=== PATIENT | female | born 1980 | race Caucasian/White ===

== ENCOUNTER 2017-06-10 17:00 | Emergency (ER) | payer BC ==
[2017-06-10 17:17] VITALS: BP 142/102; PULSE 86; TEMP 98.2; BMI 30.6
[2017-06-10] MEDS ORDERED: KETOROLAC TROMETHAMINE 60 MG/2 ML VIAL IM ONE (17:44)
--- NOTE | 2017-06-10 17:44 | PDOC ---
History of Present Illness - General Chief Complaint: Sore Throat Stated Complaint: THROAT PAIN/SWELLING Time Seen by Provider: 06/10/17 17:22 - History of Present Illness Initial Comments: 06/10/17 17:43 CHIEF COMPLAINT: foreign body sensation to throat HISTORY OF PRESENT ILLNESS: 36 yo F with no significant PMH presents to [facility] with pain and discomfort to throat. Patient states that the first week of March she had a toothpick stuck in her throat which she removed herself, and when she went to the emergency room they did a CT scan of her neck and "they did see that I had removed something from my throat." She states that last night she felt discomfort in her throat but took ibuprofen and it resolved; however today she was trying to eat and the pain returned. She denies any sensation of throat swelling or difficulty breathing or speaking, but she did have "a lot of pain." She reports that she was told to see an ENT doctor if this happened but she came to the ER because she was concerned about the pain. No recent travel or sick contacts. PAST MEDICAL HISTORY: Denies past medical history FAMILY HISTORY: Denies SOCIAL HISTORY: Denies tobacco, alcohol, illicit drug use. SURGICAL HISTORY: Denies ALLERGIES: tramadol REVIEW OF SYSTEMS General/Constitutional: Denies fever or chills. Denies weakness, weight change. HEENT: Throat pain. Denies change in vision. Denies ear pain or discharge. Cardiovascular: Denies chest pain or shortness of breath. Respiratory: Denies cough, wheezing, or hemoptysis. Gastrointestinal: Denies nausea, vomiting, diarrhea or constipation. Denies rectal bleeding. Genitourinary: Denies dysuria, frequency, or change in urination. Musculoskeletal: Denies joint or muscle swelling or pain. Denies neck or back pain. Skin and breasts: Denies rash or easy bruising. PHYSICAL EXAM General Appearance: Well-appearing, appropriately dressed. No apparent distress. HEENT: Patient speaking in complete sentences. EOMI, PERRLA, normal ENT inspection, normal voice, TMs normal, pharynx normal. No conjunctival pallor. No photophobia, scleral icterus. Neck: Supple. Trachea midline. No tenderness, rigidity, carotid bruit, stridor , lymphadenopathy, or thyromegaly. Respiratory/Chest: Lungs CTAB. No respiratory distress. Cardiovascular: RRR. S1, S2. Musculoskeletal/Extremities: Normal inspection. FROM of all extremities, normal capillary refill. Pelvis Stable. No CVA tenderness. No tenderness to extremities, pedal edema, swelling, erythema or deformity. Integumentary: Appropriate color, dry, warm. No cyanosis, erythema, jaundice or rash Neurologic: counseling program leader II-XII intact. Fully oriented, alert. Appropriate mood/affect. Motor strength 5/5. No appreciable EOM palsy, facial droop or sensory deficit. 06/10/17 17:56 Past History - Past Medical History Allergies/Adverse Reactions: Allergies Allergy/AdvReac Type Severity Reaction Status Date / Time tramadol HCl [From Ultram] Allergy Hives Verified 06/10/17 17:17 Home Medications: Ambulatory Orders Ibuprofen 400 mg PO ASDIR 06/10/17 Other medical history: NONE - Psycho/Social/Smoking Cessation Hx Anxiety: No Suicidal Ideation: No Smoking History: Never smoked Hx Alcohol Use: Yes (SOCIAL) Drug/Substance Use Hx: No Substance Use Type: None *Physical Exam - Vital Signs Last Vital Signs Temp Pulse Resp BP Pulse Ox 98.2 F 86 20 142/102 99 06/10/17 17:12 06/10/17 17:12 06/10/17 17:12 06/10/17 17:12 06/10/17 17:12 Medical Decision Making - Medical Decision Making 06/10/17 18:01 36 yo F with no significant PMH presents to [facility] with pain and discomfort to throat. -Rapid strep -Toradol 60 mg; patient reporst she is currently on her period and that there is no possibility of . No foreign body visualized on exam. Discussed with patient option to do soft tissue CT neck. Patient reports that she already had a CT at [facility] in March, and would prefer to follow up with ENT on Monday. Discussed with patient signs and symptoms for return to ER; patient verbalized understanding and agrees to plan. *DC/Admit/Observation/Transfer Diagnosis at time of Disposition: Sensation of foreign body in esophagus - Discharge Dispostion Disposition: HOME Condition at time of disposition: Stable Admit: No - Referrals Referrals: Dereck Parks MD [Staff Physician] - - Patient Instructions Additional Instructions: Continue taking Motrin as needed for your discomfort. As discussed, please follow up with ENT on Monday for a possible endoscopy. If you experience any severe swelling of the throat, difficulty breathing, inability to swallow, or any new or worsening symptoms, please go to the facility where your original CT scan was performed in order to be able to see if there has been a change since your previous visit. - Post Discharge Activity
[2017-06-10] MEDS ORDERED: KETOROLAC TROMETHAMINE 60 MG/2 ML VIAL ONE (17:48)
== END 2017-06-10 18:15 | disposition home or self-care (01) ==
LOC: JERFT 17:00
DX: T18.108D Unspecified foreign body in esophagus causing other injury, subsequent encounter (principal); X58.XXXD Exposure to other specified factors, subsequent encounter
CPT/HCPCS: 87070; 87430; 99281-25

== ENCOUNTER 2018-10-16 09:43 | Emergency (ER) | payer BC ==
[2018-10-16 10:02] VITALS: BP 184/59; PULSE 46; TEMP 98.4; BMI 31.5
--- NOTE | 2018-10-16 11:49 | PDOC ---
History of Present Illness - General Chief Complaint: Injury Stated Complaint: PAIN Time Seen by Provider: 10/16/18 11:02 - History of Present Illness Initial Comments: 10/16/18 11:46 38-year-old female without comorbidities presents for evaluation after a fall. She had a mechanical fall at home 2 days ago injuring her right side. She complains of right-sided rib pain. Right forearm pain. She did not hit her head there was no loss of consciousness postinjury nausea vomiting or visual changes. Past History - Past Medical History Allergies/Adverse Reactions: Allergies Allergy/AdvReac Type Severity Reaction Status Date / Time tramadol HCl [From Ultra] Allergy Hives Verified 10/16/18 09:59 Home Medications: Ambulatory Orders Ibuprofen 400 mg PO ASDIR 06/10/17 COPD: No - Immunization History Immunization Up to Date: Yes - Suicide/Smoking/Psychosocial Hx Smoking History: Never smoked Hx Alcohol Use: No Drug/Substance Use Hx: No Substance Use Type: None Review of Systems - Review of Systems : Yes: See HPI Musculoskeletal: Yes: See HPI *Physical Exam - Vital Signs Last Vital Signs Temp Pulse Resp BP Pulse Ox 98.4 F 46 L 18 184/59 H 98 10/16/18 09:59 10/16/18 09:59 10/16/18 09:59 10/16/18 09:59 10/16/18 09:59 - Physical Exam Comments: 10/16/18 11:48 HEAD: NC/AT EYES: Conjuntiva clear Ears: Canals and TM's normal NOSE: No d/c THROAT: Moist mucous membrances, oral pharanx clear, uvula midline NECK: Supple without adenopathy CARDIAC: S1 S2 LUNGS: CTA Full and Equal breath sounds, mild right-sided rib pain in the areas of ribs 9 and 10 about the anterior aspect. ABDOMEN: Soft NT ND MS: Full ROM in all joints without edema; there is no tenderness about the elbow wrist or forearm there is full range of motion without discomfort. There is mild crepitation about the dorsum of the forearm with wrist motion. No tenderness NEUROLOGIC: No gross sensory or motor deficits, NVID SKIN: Normal color and temperature no lesions or rashes Moderate Sedation - Procedure Monitoring Vital Signs: Procedure Monitoring Vital Signs Temperature 98.4 F 10/16/18 09:59 Pulse Rate 46 L 10/16/18 09:59 Respiratory Rate 18 12/04/18 09:59 Blood Pressure 184/59 H 10/16/18 09:59 O2 Sat by Pulse Oximetry (%) 98 10/16/18 09:59 ED Treatment Course - RADIOLOGY Radiology Studies Ordered: Category Date Time Status CHEST PA & LAT [RAD] Stat Radiology 10/16/18 11:45 Ordered RIBS RIGHT SIDE [RAD] Stat Radiology 10/16/18 11:45 Ordered Medical Decision Making - Medical Decision Making 10/16/18 12:07 Chest x-ray is normal there is no fracture on rib series *DC/Admit/Observation/Transfer Diagnosis at time of Disposition: Contusion of rib on right side, Strain of forearm, right - Discharge Dispostion Disposition: HOME Condition at time of disposition: Stable Decision to Admit order: No - Referrals Referrals: Adela Barrett MD [Primary Care Provider] - Wilfrido Moulton MD [Staff Physician] - - Patient Instructions Printed Discharge Instructions: DI for Rib Contusion, Forearm Muscle Strain, DI for Forearm Muscle Strain Additional Instructions: He may take Tylenol and Motrin as directed for pain. Return to the emergency room should symptoms worsen or go unresolved. Please follow-up with orthopedic surgery in 2-3 days for further evaluation of your treatment options for you forearm strain and your primary care physician for your rib contusion. - Post Discharge Activity
== END 2018-10-16 12:25 | disposition home or self-care (01) ==
LOC: JERFT 09:43
DX: S20.211A Contusion of right front wall of thorax, initial encounter (principal); S56.911A Strain of unspecified muscles, fascia and tendons at forearm level, right arm, initial encounter; W18.39XA Other fall on same level, initial encounter; Y93.89 Activity, other specified; Y92.009 Unspecified place in unspecified non-institutional (private) residence as the place of occurrence of the external cause
CPT/HCPCS: 71046-TC-FY; 71101-TC-RT-FY; 99281-25

== ENCOUNTER 2019-01-18 14:44 | Emergency (ER) | payer BC ==
[2019-01-18 15:00] VITALS: BP 137/85; PULSE 62; TEMP 98.6; BMI 35.0
--- NOTE | 2019-01-18 15:02 | PDOC ---
Rapid Medical Evaluation Medical Evaluation: Allergies Allergy/AdvReac Type Severity Reaction Status Date / Time tramadol HCl [From Ultram] Allergy Hives Verified 10/16/18 09:59 01/18/19 14:57 I have performed a brief in-person evaluation of this patient. The patient presents with a chief complaint of: Pressure to chest with deep inspiration SOB yesterday intermittant. States started to exercise last week, and this week bicycles , and crunches - Pertinent physical exam findings:NAD, AOx3 - lungs CTA I have ordered the following: EKG The patient will proceed to the ED for further evaluation 01/18/19 14:58 Discharge Disposition - Diagnosis Chest pain of uncertain etiology - Referrals - Patient Instructions - Post Discharge Activity
[2019-01-18] MEDS ORDERED: KETOROLAC TROMETHAMINE 60 MG/2 ML VIAL IM ONE (16:51)
[2019-01-18 17:18] LABS: BASO % 1.1 % (0-2.0); EOS % 2.6 % (0-4.5); HEMATOCRIT 41.3 % (32.4-45.2); HEMOGLOBIN 14.8 GM/dL (10.7-15.3); LYMPH % 19.2 % (8-40); MCH 32.6 pg (25.7-33.7); MCHC 35.7 g/dl (32.0-36.0); MEAN CELL VOLUME 91.1 fl (80-96); MEAN PLT VOLUME 8.3 fl (7.5-11.1); NEUT % 67.1 % (42.8-82.8); PLATELET COUNT 284 K/MM3 (134-434); RBC 4.53 M/mm3 (3.60-5.2); RDW 15.8 % (11.6-15.6); WHITE BLOOD COUNT 7.8 K/mm3 (4.0-10.0)
[2019-01-18 17:36] LABS: ALBUMIN 4.5 g/dl (3.4-5.0); ALK PHOS 77 U/L (45-117); ANION GAP 10 MMOL/L (8-16); BILIRUBIN,TOTAL 1.3 mg/dL (0.2-1); BLOOD UREA NITROGEN 11 mg/dL (7-18); CALCIUM 9.2 mg/dL (8.5-10.1); CHLORIDE 101 mmol/L (98-107); CO2 26 mmol/L (21-32); CREATININE 0.9 mg/dL (0.55-1.3); GLUCOSE,RANDOM 78 mg/dL (74-106); SGOT/AST 69 U/L (15-37); SGPT/ALT 92 U/L (13-61); SODIUM 137 mmol/L (136-145); TOT PROT 8.2 g/dl (6.4-8.2)
[2019-01-18] MEDS ORDERED: KETOROLAC TROMETHAMINE 60 MG/2 ML VIAL ONE (17:49)
--- NOTE | 2019-01-19 09:53 | EKG ---
Test Reason : Blood Pressure : / mmHG Vent. Rate : 092 BPM Atrial Rate : 092 BPM P-R Int : 150 ms QRS Dur : 086 ms QT Int : 368 ms P-R-T Axes : 018 086 037 degrees QTc Int : 455 ms NORMAL SINUS RHYTHM NORMAL ECG NO PREVIOUS ECGS AVAILABLE Confirmed by ANALIA HARDING MD ([id number]) on 01/19/2019 9:52:53 AM Referred By: Confirmed By:ANALIA HARDING MD
== END 2019-01-18 23:35 | disposition home or self-care (01) ==
LOC: JER 14:44
PROC: 3E0233Z Introduction of Anti-inflammatory into Muscle, Percutaneous Approach (ICD-10-PCS; principal; 2019-01-18)
DX: R07.9 Chest pain, unspecified (principal)
CPT/HCPCS: 36415; 80053; 82550; 82553; 83690; 84484; 85025; 93005; 93010; 96372; 99281-25

== ENCOUNTER 2020-05-29 16:32 | Emergency (ER) | payer BC ==
--- NOTE | 2020-05-29 16:38 | PDOC ---
Rapid Medical Evaluation Time Seen by Provider: 05/29/20 16:38 Medical Evaluation: Allergies Allergy/AdvReac Type Severity Reaction Status Date / Time tramadol HCl [From [facility]] Allergy Hives Verified 10/16/18 09:59 05/29/20 16:38 I have performed a brief in-person evaluation of this patient. CC: midsternal chest pain s/p blunt trauma 2 weeks ago PE: sternal tenderness. No deformity, crepitus, SQ emphysema noted. Lungs CTAB. RRR. Orders: cardiac w/u Patient will proceed to ED for further evaluation. 05/29/20 16:39 Discharge Disposition - Diagnosis Chest pain of uncertain etiology - Referrals - Patient Instructions - Post Discharge Activity
[2020-05-29 16:47] VITALS: TEMP 98.7; BMI 37.2
--- NOTE | 2020-05-29 17:53 | PDOC ---
History of Present Illness - General Chief Complaint: Chest Pain Stated Complaint: CHEST PAIN Time Seen by Provider: 05/29/20 16:38 History Source: Patient Exam Limitations: No Limitations - History of Present Illness Initial Comments: 05/29/20 17:51 39y F with PMH of "abnormal ekg" presenting to the ER today with complaints of sternal chest pain after a cough slid into her chest while she was moving it 2 weeks ago. She states the pain started to improve but then got worse. Today she also had a sharp pain in the RUQ which has resolved. She says the pain feels like a pressure, worse with palpation, laying down, and with arm movements. Exercise helps with the pain. She denies numbness, SOB, back pain, neck pain, paresthesias, n/v/d, dysuria, leg swelling, recent surgeries, smoking history, use of OCPs, family history of [place]. She took ASA today which helped. She endorses drinking more than usual, around a bottle of wine up to two bottles a night around 4 times per week. PMD: Cardio: PMH: see hpi PSH: none Meds: none Allergies: tramadol Social: alcohol use. Past History - Medical History Allergies/Adverse Reactions: Allergies Allergy/AdvReac Type Severity Reaction Status Date / Time tramadol HCl [From [facility]] Allergy Hives Verified 05/29/20 16:42 Home Medications: Ambulatory Orders Ibuprofen 400 mg PO ASDIR 06/10/17 COPD: No - Immunization History Immunization Up to Date: Yes - Psycho-Social/Smoking History Smoking History: Never smoked Have you smoked in the past 12 months: No Information on smoking cessation initiated: No - Substance Abuse Hx (Audit-C & DAST Scrn) How often the patient has a drink containing alcohol: 2-3 times / week Number of drinks the patient has on a typical day: 1 or 2 How often the patient has six or more drinks on one occasion: Never Score: In Men: 4 or > Positive; In Women: 3 or > Positive: 3 Screen Result (Pos requires Nsg. Audit-10AR): Positive In the last yr the pt used illegal drug/Rx for NonMed reason: No Score: Yes response is considered Positive: 0 Screen Result (Positive result requires Nsg. DAST-10): Negative Review of Systems - Review of Systems Constitutional: No: Symptoms Reported HEENTM: No: Symptoms Reported Respiratory: Yes: See HPI. No: Cough, Wheezing Cardiac (ROS): Yes: See HPI. No: Lightheadedness, Palpitations, Syncope ABD/GI: Yes: See HPI : No: Symptoms Reported Musculoskeletal: No: Back Pain, Joint Pain, Muscle Pain, Neck Pain, Joint Stiffness Integumentary: No: Symptoms Reported Neurological: No: Symptoms reported *Physical Exam - Vital Signs Last Vital Signs Temp Pulse Resp BP Pulse Ox 98.7 F 63 18 159/105 H 100 05/29/20 16:40 05/29/20 16:40 05/29/20 16:40 05/29/20 16:40 05/29/20 16:40 - Physical Exam General Appearance: Yes: Appropriately Dressed, Obese. No: Apparent Distress HEENT: positive: EOMI, MAYRA. negative: Scleral Icterus (R), Scleral Icterus (L) Neck: positive: Trachea midline, Supple. negative: Lymphadenopathy (R), Lymphadenopathy (L) Respiratory/Chest: positive: Chest Tender (sternal at manubrium ), Lungs Clear, Normal Breath Sounds. negative: Respiratory Distress, Rapid RR, Crackles, Rales, Rhonchi, Stridor Cardiovascular: positive: Regular Rhythm, Regular Rate, S1, S2. negative: Edema, JVD, Murmur Vascular Pulses: Dorsalis-Pedis (R): 2+, Doralis-Pedis (L): 2+ Gastrointestinal/Abdominal: positive: Normal Bowel Sounds, Soft. negative: Tender, Distended, Guarding, Rebound, Tenderness Musculoskeletal: negative: CVA Tenderness, Decreased Range of Motion, Vertebral Tenderness Extremity: positive: Normal Capillary Refill. negative: Pedal Edema, Swelling, Calf Tenderness Integumentary: positive: Normal Color, Dry, Warm Neurologic: positive: fabric awning repairer II-XII NML intact, Fully Oriented, Alert, Normal Mood/Affect, Normal Response, Motor Strength 03/17 ED Treatment Course - LABORATORY CBC & Chemistry Diagram: 05/29/20 18:25 05/29/20 18:25 - ADDITIONAL ORDERS Additional order review: Laboratory Results 05/29/20 05/29/20 05/29/20 18:25 18:25 18:25 PT with INR 10.90 INR 0.92 PTT (Actin FS) 30.0 Sodium 140 Potassium 4.1 Chloride 104 Carbon Dioxide 20 L Anion Gap 16 BUN 11.7 Creatinine 0.8 Est GFR (CKD-EPI)AfAm 106.13 Est GFR (CKD-EPI)NonAf 91.57 Random Glucose 90 Calcium 9.5 Magnesium 1.8 Total Bilirubin 2.3 H AST 177 H ALT 165 H Alkaline Phosphatase 78 Creatine Kinase 207 H Troponin I < 0.02 Total Protein 8.3 H Albumin 4.4 Urine Color Dk yellow Urine Appearance Clear Urine pH 6.0 Ur Specific [place] 1.038 H Urine Protein 2+ H Urine Glucose (UA) Negative Urine Ketones 4+ H Urine Blood Negative Urine Nitrite Negative Urine Bilirubin Negative Urine Urobilinogen 1.0 Ur Leukocyte Esterase Negative Urine WBC (Auto) 10 Urine RBC (Auto) 32 Urine Casts (Auto) 3 U Epithel Cells (Auto) 26 Urine Bacteria (Auto) 193 Urine HCG, Qual Negative 05/29/20 18:25 RBC 4.59 MCV 94.0 MCHC 34.3 RDW 15.7 H MPV 9.1 Neutrophils % 81.5 D Lymphocytes % 10.6 D Monocytes % 6.9 Eosinophils % 0.4 D Basophils % 0.6 Medical Decision Making - Medical Decision Making 05/29/20 19:28 39y F with PMH of an "arrhythmia" presenting to the ER for sternal chest pain s/p trauma by a cough slipping. vitals: mild hypertension otherwise wnl. pe notable for reproducible chest wall tenderness at sternum. mild soft tissue swelling. no other focal exam findings. ddx includes costochondritis, fracture, gerd/gastritis/ atypical acs, pancreatitis, cholecystitis. do not suspect pe at this time: perc negative. ekg: sinus tachycardia at 110 with bigeminy. -no sob, no dyspnea. will obtain cardiac labs, cbc, cmp, tsh, lipase, cxr dispo pending labs, reassessment to night team Discharge - Discharge Information Problems reviewed: Yes Clinical Impression/Diagnosis: Ventricular bigeminy, Chest wall pain, RUQ pain Condition: Stable - Follow up/Referral Referrals: Juan Anthony MD [Staff Physician] - Adela Barrett MD [Primary Care Provider] - - Patient Discharge Instructions - Post Discharge Activity
--- NOTE | 2020-05-29 18:44 | PDOC ---
Documentation entered by Kelin Wynn SCRIBE, acting as scribe for Tena Warren MD. Tena Warren MD: This documentation has been prepared by the spenceribeKingsley Sydney, SCRIBE, under my direction and personally reviewed by me in its entirety. I confirm that the documentation accurately reflects all work, treatment, procedures, and medical decision making performed by me. Attending Attestation - Resident Resident Name: Priti Newell - ED Attending Attestation I have performed the following: I have examined & evaluated the patient, The case was reviewed & discussed with the resident, I agree w/resident's findings & plan, Exceptions are as noted - HPI HPI: 05/29/20 17:59 39YOF without PMH who p/w chest discomfort ever since 2 weeks ago when she accidentally lost her acid strength inspector while lifting a couch and the couch ran into her sternum. She notes that the pain initially seemed to be improving but has been worsening over the past couple of days. She describes it as pressure, she took two baby aspirin this afternoon and it did seem to help. She additionally notes that she has been getting mildly SOB when she lays down to sleep at night. - Physicial Exam PE: 05/29/20 17:53 GENERAL: well-appearing, A/Ox4, no distress, answers questions appropriately HEENT: PERRLA, EOMI, moist mucous membranes NECK/BACK: no midline ttp, no spinal stepoff or deformity, no hematoma, full ROM, neck supple CARDIOVASCULAR: regular rate/rhythm, no MGR, strong peripheral pulses, capillary refill <2 seconds, extremities wwp, no edema CHEST WALL: mild tenderness to compression of the sternum, chest wall without ecchymosis or contusion or costal stepoff/deformity LUNGS/RESPIRATORY: no respiratory distress, CTAB GI/ABDOMEN: symmetric [id number], normoactive BS, soft, mild epigastric ttp, no midline pulsatile masses : no CVA tenderness MSK/EXTREMITIES: no muscle atrophy, no acute deformity SKIN: warm and dry, no pallor, no jaundice, no rash, no pathologic-appearing bruising, no skin breakdown, no cuts, no lesions NEUROLOGICAL: GCS 15, CN II-XII grossly intact, 5/5 strength proximally and distally, no facial droop - Medical Decision Making 05/29/20 18:25 39YOF with h/o obesity p/w midsternal and epigastric discomfort x2 weeks. Initial Vital Signs Temp Pulse Resp BP Pulse Ox 98.7 F 63 18 159/105 H 100 05/29/20 16:40 05/29/20 16:40 05/29/20 16:40 05/29/20 16:40 05/29/20 16:40 DDX IBNLT: most likely cholecystitis (calculous), choledocholithiasis, gastritis, PUD, or discomfort related to her ventricular bigeminy. Less likely but still possible pancreatitis, ACS, etc. Also possibly musculoskeletal but will complete workup to exclude other causes. As for the upper sternal chest wall tenderness/pain, most likely simple contusion but there is a possibility of sternal fracture, less likely ectopic thyroid tissue/thyroiditis or other etiology but getting TSH. W/U ordered: Labs as noted below, EKG, CXR, RUQ US TX ordered: EKG: Reviewed; results as noted in ECG Review section. I have discussed the results of the EKG showing ventricular bigeminy with the patient. She notes that she has previously had an arrhythmia with cardiology evaluation and was told everything looked fine. She was supposed to have had a stress test 1-2 years ago but she did not follow up. I gave her a copy of her EKG showing the ventricular bigeminy and noted that she needs cardiology followup for this no matter what. We are checking thorough electrolyte panel and TSH as well as cardiac workup, CXR, and RUQ US to ensure there is no precipitating factor. Patient's care endorsed to night resident and team pending w/u results and dispo decision. Heart Score/ECG Review - History History: Slightly suspicious - Electrocardiogram EKG: Non specific repolarization disturbance - Age Age: </= 45 - Risk Factors Risk Factors Heart Score: Yes Hx Obesity Based on the list above the patient has:: 1-2 risk factors - Troponin Troponin: </= normal limit - Score Heart Score - Total: 2 #1 05/29/20 16:35 Sinus rhythm, rate 110, ventricular bigeminy, non-PVC beats with normal axis and without ischemic ST-T changes. Discharge - Discharge Information Problems reviewed: Yes Clinical Impression/Diagnosis: Ventricular bigeminy, Chest wall pain, RUQ pain Condition: Stable - Follow up/Referral Referrals: Adela Barrett MD [Primary Care Provider] - Juan Anthony MD [Staff Physician] - - Patient Discharge Instructions - Post Discharge Activity
[2020-05-29 19:01] LABS: BASO % 0.6 % (0-2.0); EOS % 0.4 % (0-4.5); HEMATOCRIT 43.1 % (32.4-45.2); HEMOGLOBIN 14.8 GM/dL (10.7-15.3); LYMPH % 10.6 % (8-40); MCH 32.2 pg (25.7-33.7); MCHC 34.3 g/dl (32.0-36.0); MEAN PLT VOLUME 9.1 fl (7.5-11.1); MONO % 6.9 % (3.8-10.2); NEUT % 81.5 % (42.8-82.8); PLATELET COUNT 276 K/MM3 (134-434); RBC 4.59 M/mm3 (3.60-5.2); RDW 15.7 % (11.6-15.6); WHITE BLOOD COUNT 9.1 K/mm3 (4.0-10.0)
[2020-05-29 19:06] LABS: HCG,QUALITATIVE URINE Negative
[2020-05-29 19:07] LABS: EPI CELLS 26 /uL (0-25.1); HYALINE CASTS 3 /uL (0-3.1); INR 0.92 (0.83-1.09); PROTHROMBIN TIME (PATIENT) 10.9 SEC (9.7-13.0); URINE APPEARANCE CLEAR; URINE BACTERIA 193 /uL (0-1359); URINE BILIRUBIN NEGATIVE (NEGATIVE); URINE COLOR DK YELLOW; URINE GLUCOSE (UA) NEGATIVE (NEGATIVE); URINE KETONE 4+ (NEGATIVE); URINE LEUK ESTERASE NEGATIVE (NEGATIVE); URINE NITRITE NEGATIVE (NEGATIVE); URINE PROTEIN 2+ (NEGATIVE); URINE RBC 32 /uL (0-23.9); URINE WBC 10 /uL (0-25.8)
[2020-05-29] MEDS ORDERED: SODIUM CHLORIDE 0.9% 500 ML INFUS.BAG IV ONE (19:15)
[2020-05-29 19:31] LABS: ALBUMIN 4.4 g/dl (3.4-5.0); ALK PHOS 78 U/L (45-117); ANION GAP 16 MMOL/L (8-16); BILIRUBIN,TOTAL 2.3 mg/dL (0.2-1); BLOOD UREA NITROGEN 11.7 mg/dL (7-18); CALCIUM 9.5 mg/dL (8.5-10.1); CHLORIDE 104 mmol/L (98-107); CO2 20 mmol/L (21-32); CREATININE 0.8 mg/dL (0.55-1.3); GLUCOSE,RANDOM 90 mg/dL (74-106); MAGNESIUM 1.8 mg/dL (1.8-2.4); POTASSIUM 4.1 mmol/L (3.5-5.1); SGOT/AST 177 U/L (15-37); SGPT/ALT 165 U/L (13-61); SODIUM 140 mmol/L (136-145); TOT PROT 8.3 g/dl (6.4-8.2)
[2020-05-29 19:43] LABS: LIPASE 79 U/L (73-393); PHOSPHOROUS 3.5 mg/dL (2.5-4.9)
--- NOTE | 2020-05-29 19:43 | PDOC ---
*Physical Exam - Vital Signs Last Vital Signs Temp Pulse Resp BP Pulse Ox 98.7 F 63 18 159/105 H 100 05/29/20 16:40 05/29/20 16:40 05/29/20 16:40 05/29/20 16:40 05/29/20 16:40 ED Treatment Course - LABORATORY CBC & Chemistry Diagram: 05/29/20 18:25 05/29/20 18:25 - ADDITIONAL ORDERS Additional order review: Laboratory Results 05/29/20 05/29/20 05/29/20 18:25 18:25 18:25 PT with INR 10.90 INR 0.92 PTT (Actin FS) 30.0 Sodium 140 Potassium 4.1 Chloride 104 Carbon Dioxide 20 L Anion Gap 16 BUN 11.7 Creatinine 0.8 Est GFR (CKD-EPI)AfAm 106.13 Est GFR (CKD-EPI)NonAf 91.57 Random Glucose 90 Calcium 9.5 Magnesium 1.8 Total Bilirubin 2.3 H AST 177 H ALT 165 H Alkaline Phosphatase 78 Creatine Kinase 207 H Troponin I < 0.02 Total Protein 8.3 H Albumin 4.4 Urine Color Dk yellow Urine Appearance Clear Urine pH 6.0 Ur Specific [place] 1.038 H Urine Protein 2+ H Urine Glucose (UA) Negative Urine Ketones 4+ H Urine Blood Negative Urine Nitrite Negative Urine Bilirubin Negative Urine Urobilinogen 1.0 Ur Leukocyte Esterase Negative Urine WBC (Auto) 10 Urine RBC (Auto) 32 Urine Casts (Auto) 3 U Epithel Cells (Auto) 26 Urine Bacteria (Auto) 193 Urine HCG, Qual Negative 05/29/20 18:25 RBC 4.59 MCV 94.0 MCHC 34.3 RDW 15.7 H MPV 9.1 Neutrophils % 81.5 D Lymphocytes % 10.6 D Monocytes % 6.9 Eosinophils % 0.4 D Basophils % 0.6 Medical Decision Making - Medical Decision Making 05/29/20 19:20 Sign out received from Dr Newell. Nina Castillo is a 39yo woman with a PMH of "abnormal EKG," recent heavy alcohol use who presented to the ED for evaluation of pressure-like chest pain that worsens when laying down, with arm movement, and with direct palpation. ED course notable for: - EKG with bigeminy, HR 110, normal axis, normal intervals, no ST changes - Labs sent 05/29/20 19:44 - Labs notable for mildly elevated AST, ALT. Tbili 2.3 - UA with 4+ ketones - IVF ordered - Will obtain POCUS, will likely need abd US to evaluate for cholecystitis/cho lilithiasis 05/29/20 20:24 - POCUS without GB abnormalities appreciated - Will send for RUQ US - Discussed with pt that she should be admitted for further evaluation given lab abnormalities, continued pain. Pt reluctant to stay, will re-discuss after imaging 05/29/20 21:54 - US with diffuse fatty liver infiltrate, no other abnormalities - Discussed w/ patient. Willing to stay for additional IVF but wants to leave AMA. Will follow up with her logistics service representative and GI. Will sign AMA papers - Toradol for continued pain - AMA after fluids Discussed with Dr Raffy Rahman PGY3 Discharge - Discharge Information Problems reviewed: Yes Clinical Impression/Diagnosis: Ventricular bigeminy, Chest wall pain, RUQ pain, Elevated LFTs, Elevated bilirubin Condition: Stable Disposition: AGAINST MEDICAL ADVICE - Follow up/Referral Referrals: Juan Anthony MD [Staff Physician] - Adela Barrett MD [Primary Care Provider] - Bam Fair MD [Staff Physician] - - Patient Discharge Instructions Patient Printed Discharge Instructions: DI for Atypical Chest Pain, DI for Nonalcoholic Fatty Liver Disease Additional Instructions: Discharge Instructions: You were seen in the emergency department for chest pain. Your EKG showed an abnormality called bigeminy. You need to follow up with your logistics service representative to make sure this is not new. Your blood tests showed high liver function tests (AST and ALT) as well as elevated bilirubin; your abdominal ultrasound showed fatty liver. This may be due to heavy alcohol use but you will need to follow up with a GI specialist. Home Care and Follow Up: - You may use over the counter medications as needed for pain at home. 650- 1000mg acetaminophen (Tylenol) or 600mg ibuprofen (Motrin or Advil) can be used every 6-8 hours. If needed for continued pain, these medications may be alternated every 3-4 hours. For example, if you take ibuprofen at 9am, you may take acetaminophen at noon, ibuprofen at 3pm, etc. - You may buy a numbing patch that contains lidocaine (the patch is 4% lidocaine) that can be placed over the areas of greatest pain. The lidocaine patch may be placed for 12 hours then removed for 12 hours. - Try using an ice pack for 20 minutes every hour or a heating pad for additional pain control. These should NOT be used over the lidocaine patch, but you may place them over the areas of pain while the patch is off. - Do not stop moving around. As much as you can tolerate, continue to do light exercise and stretching exercises. Increase your activity level as much as you can tolerate daily. - You need to follow up with your primary doctor and your cardiologst within the next 2-3 days for evaluation of your abnormal EKG - You need to follow up with a GI specialist for further evaluation of your elevated liver tests, elevated bilirubin, and ultrasound finding of fatty liver. You have been given contact information for Dr Fair (your previous GI doctor). Make an appointment within the next few weeks. - Seek immediate medical care if you have significant worsening of your symptoms, your pain does not improve over the next week, you have difficulty breathing, you have severe abdominal pain, you have persistent vomiting or are unable to eat, or you have any other medical emergency. - Post Discharge Activity
[2020-05-29] MEDS ORDERED: KETOROLAC TROMETHAMINE 15 MG/ML VIAL IVPUSH ONE (21:39)
[2020-05-29] MEDS ORDERED: KETOROLAC TROMETHAMINE 15 MG/ML VIAL ONE (21:39)
[2020-05-29 21:47] VITALS: BP 172/83; PULSE 58
--- NOTE | 2020-05-30 15:01 | EKG ---
Test Reason : Blood Pressure : / mmHG Vent. Rate : 110 BPM Atrial Rate : 110 BPM P-R Int : 134 ms QRS Dur : 084 ms QT Int : 356 ms P-R-T Axes : 052 077 031 degrees QTc Int : 481 ms SINUS TACHYCARDIA WITH FREQUENT PREMATURE VENTRICULAR COMPLEXES IN A PATTERN OF BIGEMINY POSSIBLE LEFT ATRIAL ENLARGEMENT BORDERLINE ECG WHEN COMPARED WITH ECG OF 18-JAN-2019 14:51, PREMATURE VENTRICULAR COMPLEXES ARE NOW PRESENT Confirmed by PRAFUL LEBLANC MD ([id number]) on 05/30/2020 3:01:51 PM Referred By: Confirmed By:PRAFUL LEBLANC MD
== END 2020-05-29 22:43 | disposition left against medical advice (07) ==
LOC: JER 16:32
PROC: 3E033GC Introduction of Other Therapeutic Substance into Peripheral Vein, Percutaneous Approach (ICD-10-PCS; principal; 2020-05-29)
DX: I49.8 Other specified cardiac arrhythmias (principal); R10.11 Right upper quadrant pain; R94.5 Abnormal results of liver function studies
CPT/HCPCS: 36415; 71046-TC-FY; 76705-TC; 80053; 81003; 82550; 82553; 83690; 83735; 84100; 84443; 84484; 84703; 85025; 85610; 85730; 93005; 93010; 99285-25